=== PATIENT | male | born 1990 | race American Indian/Alaskan Native ===

== ENCOUNTER 2016-09-26 17:46 | Emergency (ER) | payer SELFPAY ==
[2016-09-26] MEDS ORDERED: Sodium Chloride 0.9% 10 ML Syringe FLUSH PRN (17:59)
[2016-09-26] MEDS ORDERED: LORazepam 2 MG/ML Syringe IVPUSH ONE (17:59)
[2016-09-26] MEDS ORDERED: Sodium Chloride 0.9% 1,000 ML IV ONE (17:59)
[2016-09-26] MEDS ORDERED: Diphtheria,Pertussis(Acell),Tetanus Vaccine 0.5 ML SDV IM ONE (18:00)
[2016-09-26] MEDS ORDERED: diphenhydrAMINE 50 MG/ML SDV ONE (18:07)
[2016-09-26] MEDS ORDERED: Ondansetron 4 MG/2 ML SDV IV ONE (18:23)
[2016-09-26 18:39] LABS: CHLORIDE,CL 104 mmol/L (101-111); SODIUM,NA 142 mmol/L (135-145)
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
[2016-09-26 21:08] VITALS: BP 118/60
== END 2016-09-26 21:08 ==
LOC: DL.ED 17:46
DX: S06.0X0A Concussion without loss of consciousness, initial encounter (principal); Z87.891 Personal history of nicotine dependence; W22.8XXA Striking against or struck by other objects, initial encounter
CPT/HCPCS: 12002; 36415; 70450; 80053; 85025; 90471; 90715; 96365; 96366; 96375; 99284; 99285; G0480; J1200; J2060; J2405; J7030; J7050

== ENCOUNTER 2016-10-02 20:25 | Emergency (ER) | payer SELFPAY ==
--- NOTE | 2016-10-02 20:41 | EDM.PDOC ---
ED HPI GENERAL MEDICAL PROBLEM - General Chief Complaint: Upper Extremity Injury/Pain Stated Complaint: HURT WRIST [id number] Time Seen by Provider: 10/02/16 20:40 Source of Information: Reports: Patient History Limitations: Reports: No Limitations - History of Present Illness INITIAL COMMENTS - FREE TEXT/NARRATIVE: fell onto it Left Wrist Pain Score (Numeric/FACES): 4 - Related Data Allergies Allergy/AdvReac Type Severity Reaction Status Date / Time No Known Allergies Allergy Verified 10/02/16 20:30 Home Meds: Home Meds . [No Known Home Meds] 10/02/16 [History] Past Medical History - Past Health History Medical/Surgical History: Denies Medical/Surgical History Respiratory History: Reports: Asthma Musculoskeletal History: Reports: Fracture Psychiatric History: Reports: Addiction, Anxiety, Panic Attack - Infectious Disease History Infectious Disease History: Reports: Chicken Pox Social & Family History - Family History Family Medical History: Noncontributory - Tobacco Use Smoking Status *Q: Never Smoker Years of Tobacco use: 5 Packs/Tins Daily: 0.5 Month Tobacco Last Used: december Second Hand Smoke Exposure: Yes - Caffeine Use Caffeine Use: Reports: Coffee - Alcohol Use Days Per Week of Alcohol Use: 1 Number of Drinks Per Day: 10 Total Drinks Per Week: 10 - Recreational Drug Use Recreational Drug Use: No Drug Use in Last 12 Months: No - Living Situation & Occupation Living situation: Reports: with Significant Other Occupation: Employed Review of Systems - Review of Systems Review Of Systems: ROS reveals no pertinent complaints other than HPI. Trauma Exam - Physical Exam Exam: See Below Exam Limited By: No Limitations General Appearance: Reports: Alert, WD/WN, Mild Distress, Other (pain) Head: Reports: Atraumatic Ears: Reports: Hearing Grossly Normal Throat/Mouth: Reports: Normal Voice, No Airway Compromise Neck: Reports: Non-Tender, Full Range of Motion Respiratory Exam: Reports: No Respiratory Distress Cardiovascular: Reports: Regular Rate, Rhythm GI/Abdominal: Reports: Soft, Non-Tender Extremities: Pain with Movement, Other (left wrist, NV wnl, mild swelling) Neurologic: Reports: No Motor/Sensory Deficits, Alert, Normal Mood/Affect, Oriented x 3 Skin: Reports: Normal Color, Warm/Dry Course - Vital Signs Last Recorded V/S: Last Vital Signs Temp 36.3 C 10/02/16 20:37 Pulse 84 10/02/16 20:37 Resp 16 10/02/16 20:37 BP 149/103 H 10/02/16 20:37 Pulse Ox 95 10/02/16 20:37 - Orders/Labs/Meds Orders: Active Orders 24 hr Category Date Time Status Wrist Comp Min 3V Lt [CR] Urgent Exams 10/02/16 20:40 Taken - Re-Assessments/Exams Free Text/Narrative Re-Assessment/Exam: 10/02/16 21:09 negative x-ray discussed with Pt. Departure - Departure Time of Disposition: 21:10 Disposition: Home, Self-Care 01 Condition: good Clinical Impression: Left wrist sprain Qualifiers: Encounter type: initial encounter Qualified Code(s): S63.502A - Unspecified sprain of left wrist, initial encounter - Discharge Information Instructions: Wrist Pain, [id number] Forms: ED Department Discharge Additional Instructions: 1) wear brace for comfort next 48 hours 2) follow up at clinic or recheck as needed - My Orders Last 24 Hours: My Active Orders 10/02/16 20:40 Wrist Comp Min 3V Lt [CR] Urgent - Assessment/Plan Last 24 Hours: My Active Orders 10/02/16 20:40 Wrist Comp Min 3V Lt [CR] Urgent
[2016-10-02 20:43] VITALS: BP 149/103
[2016-10-02] MEDS ORDERED: Acetaminophen/HYDROcodone 325-10 MG Tab PO ONE (21:10)
== END 2016-10-02 21:21 | disposition home or self-care (01) ==
LOC: DL.ED 20:25
DX: S63.502A Unspecified sprain of left wrist, initial encounter (principal); J45.909 Unspecified asthma, uncomplicated; F41.9 Anxiety disorder, unspecified; W19.XXXA Unspecified fall, initial encounter
CPT/HCPCS: 73110; 99283; A9270; 99282

== ENCOUNTER 2017-02-18 03:40 | Emergency (ER) | payer OTHER ==
[2017-02-18 03:46] VITALS: BP 152/75
[2017-02-18] MEDS ORDERED: Lidocaine 1% 30 ML SDV INJECT ONE (03:50)
[2017-02-18] MEDS ORDERED: Bacitracin Oint 1 GM U/D Packet TOP ONE (03:50)
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
[2017-02-18 04:15] LABS: CHLORIDE,CL 105 mmol/L (101-111); SODIUM,NA 139 mmol/L (135-145)
[2017-02-18 04:17] LABS: ACETAMINOPHEN < 10
== END 2017-02-18 04:25 ==
LOC: DL.ED 03:40
DX: Z02.89 Encounter for other administrative examinations (principal); S01.111A Laceration without foreign body of right eyelid and periocular area, initial encounter; F10.129 Alcohol abuse with intoxication, unspecified; Z88.0 Allergy status to penicillin; Z88.1 Allergy status to other antibiotic agents; Z88.5 Allergy status to narcotic agent; X58.XXXA Exposure to other specified factors, initial encounter; Y90.8 Blood alcohol level of 240 mg/100 ml or more
CPT/HCPCS: 12011; 36415; 80053; 80305; 81001; 85025; 99285; G0480; 99283

== ENCOUNTER 2017-03-03 10:37 | Emergency (ER) | payer SELFPAY ==
[2017-03-03 10:56] VITALS: BP 159/98
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
[2017-03-03] MEDS ORDERED: Acetaminophen/HYDROcodone 325-10 MG Tab PO ONE (11:37)
== END 2017-03-03 12:14 | disposition home or self-care (01) ==
LOC: DL.ED 10:37
DX: S02.2XXA Fracture of nasal bones, initial encounter for closed fracture (principal); X94.0XXA Assault by shotgun, initial encounter
CPT/HCPCS: 70486; 99283; A9270

== ENCOUNTER 2017-04-25 18:21 | Emergency (ER) | payer SELFPAY ==
[2017-04-25 18:47] VITALS: BP 190/106
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
[2017-04-25] MEDS ORDERED: LORazepam 2 MG/ML Syringe IVPUSH ONE (18:55)
[2017-04-25 19:21] LABS: CHLORIDE,CL 102 mmol/L (101-111); SODIUM,NA 137 mmol/L (135-145)
--- NOTE | 2017-04-28 10:44 | EKG ---
04/25/2017 - CANDIS PAYAN - FINDINGS: I reviewed the EKG and agree with the machine's reading. [facility] /[id number]
== END 2017-04-25 21:38 | disposition home or self-care (01) ==
LOC: DL.ED 18:21
DX: F15.10 Other stimulant abuse, uncomplicated (principal); J45.909 Unspecified asthma, uncomplicated; Z79.899 Other long term (current) drug therapy
CPT/HCPCS: 36415; 71010; 80053; 80305; 81003; 83605; 84484; 85025; 85379; 87040; 93005; 93010; 96374; 99285; G0480; J2060; 99282

== ENCOUNTER 2017-05-31 21:31 | Emergency (ER) | payer SELFPAY ==
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
[2017-05-31] MEDS ORDERED: Acetaminophen 325 MG Tab PO ONE (21:48)
== END 2017-05-31 22:48 | disposition left against medical advice (07) ==
LOC: DL.ED 21:31
DX: S01.112A Laceration without foreign body of left eyelid and periocular area, initial encounter (principal); J45.909 Unspecified asthma, uncomplicated; Z87.891 Personal history of nicotine dependence; Y04.0XXA Assault by unarmed brawl or fight, initial encounter
CPT/HCPCS: 70450; 72125; 72128; 99285; A9270; 99283

== ENCOUNTER 2017-06-21 02:57 | Emergency (ER) | payer OTHER ==
[2017-06-21 03:01] VITALS: BP 154/103
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
[2017-06-21] MEDS ORDERED: Lidocaine 1% with EPINEPHrine 1:100,000 30 ML MDV INJECT ONE (03:34)
[2017-06-21] MEDS ORDERED: Acetaminophen/oxyCODONE 325-5 MG Tab PO ONE ×2 (04:25→04:37)
[2017-06-21] MEDS ORDERED: Cephalexin 500 MG Cap PO ONE (04:33)
[2017-06-21] MEDS ORDERED: Cephalexin 500 MG Cap ONE (04:35)
[2017-06-21] MEDS ORDERED: Acetaminophen/oxyCODONE 325-5 MG Tab ONE ×2 (04:35→04:38)
[2017-06-21] MEDS ORDERED: Acetaminophen 325 MG Tab PO ONE (04:36)
== END 2017-06-21 04:46 | disposition home or self-care (01) ==
LOC: DL.ED 02:57
DX: S01.512A Laceration without foreign body of oral cavity, initial encounter (principal); S19.9XXA Unspecified injury of neck, initial encounter; F17.210 Nicotine dependence, cigarettes, uncomplicated; Y04.0XXA Assault by unarmed brawl or fight, initial encounter
CPT/HCPCS: 12011; 70450; 70486; 72125; 99284; 99285; A9270

== ENCOUNTER 2017-07-16 04:55 | Emergency (ER) | payer OTHER ==
[2017-07-16 05:21] VITALS: BP 177/118
[2017-07-16] MEDS ORDERED: Ketorolac 30 MG/ML SDV IM ONE (05:22)
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
== END 2017-07-16 06:19 | disposition home or self-care (01) ==
LOC: DL.ED 04:55
DX: M54.6 Pain in thoracic spine (principal); F17.210 Nicotine dependence, cigarettes, uncomplicated; Y04.2XXA Assault by strike against or bumped into by another person, initial encounter
CPT/HCPCS: 72070; 72110; 72220; 80305; 81001; 96372; 99284; J1885

== ENCOUNTER 2019-11-05 16:42 | Emergency (ER) | payer OTHER ==
[2019-11-05 17:11] VITALS: BP 148/102; PULSE 70
--- NOTE | 2019-11-13 03:47 | EDM.PDOC ---
Scribed by Selina Renee 11/13/19 0336 for Alison Burns PA-C ED HPI GENERAL MEDICAL PROBLEM - General Chief Complaint: Lower Extremity Injury/Pain Stated Complaint: LEFT ANKLE, NUMB IN AREA, IN PAIN WALK, PER PT Time Seen by Provider: 11/05/19 17:15 Source of Information: Reports: Patient, RN, RN Notes Reviewed History Limitations: Reports: No Limitations - History of Present Illness INITIAL COMMENTS - FREE TEXT/NARRATIVE: ED ambulatory, reports weakness to left foot and pain in Achilles area from injury sustained while playing basketball 15 weeks ago. States did not followup because of covid. Has not re injured extremity. Tingling sensation/numbness around ankle, some swelling Left Ankle Pain Score (Numeric/FACES): 4 - Related Data Allergies Allergy/AdvReac Type Severity Reaction Status Date / Time No Known Allergies Allergy Verified 11/05/19 17:00 Home Meds: Home Meds Albuterol Sulfate [Ventolin Hfa] 2 puff IN ASDIRECTED PRN 03/03/17 [History] Albuterol Sulfate 2.5 mg IH Q6HR PRN 04/22/18 [History] Past Medical History - Past Health History Medical/Surgical History: Denies Medical/Surgical History HEENT History: Reports: None Cardiovascular History: Reports: None Respiratory History: Reports: Asthma Gastrointestinal History: Reports: GERD Genitourinary History: Reports: None Musculoskeletal History: Reports: Fracture Neurological History: Reports: None Psychiatric History: Reports: Addiction, Anxiety, Panic Attack Endocrine/Metabolic History: Reports: None Hematologic History: Reports: None Immunologic History: Reports: None Oncologic (Cancer) History: Reports: None Dermatologic History: Reports: None - Infectious Disease History Infectious Disease History: Reports: Chicken Pox - Past Surgical History GI Surgical History: Reports: Appendectomy Social & Family History - Family History Family Medical History: Noncontributory - Tobacco Use Smoking Status *Q: Current Every Day Smoker Years of Tobacco use: 10 Packs/Tins Daily: 0.1 - Caffeine Use Caffeine Use: Reports: Soda - Recreational Drug Use Recreational Drug Use: No - Living Situation & Occupation Living situation: Reports: with Significant Other Occupation: Employed Review of Systems - Review of Systems Review Of Systems: Comprehensive ROS is negative, except as noted in HPI. ED EXAM, GENERAL - Physical Exam Exam: See Below Exam Limited By: No Limitations General Appearance: Alert, No Apparent Distress Ears: Hearing Grossly Normal Respiratory/Chest: No Respiratory Distress, Lungs Clear Extremities: Limited Range of Motion (limited flexion left ankle, lax flex extension), Other (mild tenderness posterior ankle with mild bulging in achilles area. ) Neurological: Alert, Oriented Psychiatric: Normal Affect Skin Exam: Warm, Dry, Intact Course - Vital Signs Last Recorded V/S: Last Vital Signs Temp 98.2 F 11/05/19 17:09 Pulse 70 11/05/19 17:09 Resp 18 11/05/19 17:09 BP 148/102 H 11/05/19 17:09 Pulse Ox 98 11/05/19 17:09 - Re-Assessments/Exams Free Text/Narrative Re-Assessment/Exam: MRI recommended to determine extent of injury, Unavailable through ED. Informed study needed to be ordered through clinic. Injury 15 weeks old. Xray offered Patient states will just leave. AMA form signed. Departure - Departure Time of Disposition: 17:55 Disposition: Against Medical Advice 07 Condition: Undetermined Clinical Impression: Lower extremity injury Qualifiers: Encounter type: initial encounter Laterality: left Qualified Code(s): S89.92XA - Unspecified injury of left lower leg, initial encounter - Discharge Information Referrals: PCP,None [Primary Care Provider] - Forms: ED Department Discharge Sepsis Event Note (ED) - Evaluation Sepsis Screening Result: No Definite Risk I have read and agree with the documentation that has been completed regarding this visit. By signing this record, I attest that the documentation was completed in my physical presence and is an accurate record of the encounter.
== END 2019-11-05 17:57 | disposition left against medical advice (07) ==
LOC: DL.ED 16:42
DX: S89.92XA Unspecified injury of left lower leg, initial encounter (principal); F17.210 Nicotine dependence, cigarettes, uncomplicated; X58.XXXA Exposure to other specified factors, initial encounter; Y93.67 Activity, basketball
CPT/HCPCS: 99283

== ENCOUNTER 2020-03-08 06:58 | Emergency (ER) | payer OTHER ==
--- NOTE | 2020-03-08 07:32 | EDM.PDOCBH ---
ED HPI GENERAL MEDICAL PROBLEM - General Chief Complaint: Drug or Alcohol Abuse Stated Complaint: ambulance Time Seen by Provider: 03/08/20 07:20 Source of Information: Reports: Patient, EMS, EMS Notes Reviewed, RN, RN Notes Reviewed History Limitations: Reports: Intoxication - History of Present Illness INITIAL COMMENTS - FREE TEXT/NARRATIVE: Patient presents to the ED via EMS with complaints of bilateral lower extremity paraesthesia. Per EMS report, the patient presented to his friends home early this morning stating he could not feel his legs. When EMS arrived the patient was minimally responsive; He was given Narcan 1mL IVP x2 and aroused to loud voice. The patient is currently arousable to touch. He is disoriented to place and time. He states he "...just got off work at the [employer]." He denies alcohol or recreational drug use. He does attest to paraesthesia in his bilateral feet and lower legs. He denies pain to his trunk and all extremities. - Related Data Allergies Allergy/AdvReac Type Severity Reaction Status Date / Time No Known Allergies Allergy Verified 11/05/19 17:00 Home Meds: Home Meds Albuterol Sulfate [Ventolin Hfa] 2 puff IN ASDIRECTED PRN 03/03/17 [History] Albuterol Sulfate 2.5 mg IH Q6HR PRN 04/22/18 [History] Past Medical History - Past Health History Medical/Surgical History: Denies Medical/Surgical History HEENT History: Reports: None Cardiovascular History: Reports: None Respiratory History: Reports: Asthma Gastrointestinal History: Reports: GERD Genitourinary History: Reports: None Musculoskeletal History: Reports: Fracture Neurological History: Reports: None Psychiatric History: Reports: Addiction, Anxiety, Panic Attack Endocrine/Metabolic History: Reports: None Hematologic History: Reports: None Immunologic History: Reports: None Oncologic (Cancer) History: Reports: None Dermatologic History: Reports: None - Infectious Disease History Infectious Disease History: Reports: None - Past Surgical History GI Surgical History: Reports: Appendectomy Social & Family History - Family History Family Medical History: Noncontributory - Caffeine Use Caffeine Use: Reports: Soda - Recreational Drug Use Recreational Drug Use: Yes Recreational Drug Use Frequency: Patient Refuses To Answer - Living Situation & Occupation Living situation: Reports: with Significant Other Occupation: Employed ED ROS GENERAL - Review of Systems Review Of Systems: Comprehensive ROS is negative, except as noted in HPI. ED EXAM, BEHAVIORAL HEALTH - Physical Exam Exam: See Below Exam Limited By: Intoxication General Appearance: No Apparent Distress, Lethargic Respiratory/Chest: No Respiratory Distress, Lungs Clear, Normal Breath Sounds, No Accessory Muscle Use, Chest Non-Tender Cardiovascular: Normal Peripheral Pulses, Regular Rate, Rhythm, No Edema, No Gallop, No JVD, No Murmur, No Rub, Tachycardia GI/Abdominal: Normal Bowel Sounds, Soft, Non-Tender, No Distention, No Mass Back Exam: Normal Inspection, Full Range of Motion Extremities: No Pedal Edema, Limited Range of Motion (To bilateral toes), Other (Paraesthesia to bilateral lower extremities, knee down). No: Leg Pain Neurological: Disoriented to Place, Disoriented to Time, Slow Response to Commands, No Response to Pain (To bilateral lower extremities), Abnormal Sensation, Abnormal Motor. No: Babinski Psychiatric: Normal Affect, Normal Mood, Disoriented Skin Exam: Warm, Dry, Intact, Normal color, No rash, Erythema (Surrounding wound to anterior left lower leg), Wound/incision (Scabbed abrasion to left anterior lower leg; 2cm x 3cm). No: Ecchymosis, Mottled, Pallor, Petechiae, Rash COURSE, BEHAVIORAL HEALTH COMP - Course Vital Signs: Last Vital Signs Temp 98.7 F 03/08/20 10:25 Pulse 76 03/08/20 10:25 Resp 16 03/08/20 10:25 BP 133/90 03/08/20 10:25 Pulse Ox 97 03/08/20 10:25 Orders, Labs, Meds: Laboratory Tests 03/08/20 03/08/20 03/08/20 Range/Units 07:22 07:22 07:22 WBC 8.5 (5.0-10.0) 10^3/uL RBC 5.29 (4.6-6.2) 10^6/uL Hgb 16.2 (14.0-18.0) g/dL Hct 47.0 (40.0-54.0) % MCV 88.8 (80-100) fL MCH 30.6 (27.0-34.0) pg MCHC 34.5 (33.0-35.0) g/dL Plt Count 243 (150-450) 10^3/uL Neut % (Auto) 73.0 (42.2-75.2) % Lymph % (Auto) 18.9 L (20.5-50.1) % Hendricks % (Auto) 7.6 (2-8) % Eos % (Auto) 0.0 L (1.0-3.0) % Baso % (Auto) 0.5 (0.0-1.0) % Sodium 143 (136-145) mmol/L Potassium 3.0 L (3.5-5.1) mmol/L Chloride 103 (98-107) mmol/L Carbon Dioxide 26 (21-32) mmol/L Anion Gap 17.0 H (7-13) mEq/L BUN 7 (7-18) mg/dL Creatinine 0.94 (0.70-1.30) mg/dL Est Cr Clr Drug Dosing TNP Estimated GFR (MDRD) > 60 BUN/Creatinine Ratio 7.4 (No establ ref range) Glucose 109 H (74-99) mg/dL Calcium 8.1 L (8.5-10.1) mg/dL Phosphorus 2.6 (2.6-4.7) mg/dL Magnesium 2.0 (1.8-2.4) mg/dL Total Bilirubin 0.5 (0.2-1.0) mg/dL AST 148 H (15-37) U/L ALT 123 H (16-63) U/L Alkaline Phosphatase 138 H (46-116) U/L C-Reactive Protein 0.2 (0.0-0.9) mg/dL Total Protein 8.1 (6.4-8.2) g/dL Albumin 4.0 (3.4-5.0) g/dL Globulin 4.1 Albumin/Globulin Ratio 1.0 Urine Color (YELLOW) Urine Appearance (CLEAR) Urine pH (5.0-9.0) Ur Specific [place] (1.005-1.030) Urine Protein (NEGATIVE) Urine Glucose (UA) (NEGATIVE) Urine Ketones (NEGATIVE) Urine Occult Blood (NEGATIVE) Urine Nitrite (NEGATIVE) Urine Bilirubin (NEGATIVE) Urine Urobilinogen (0.2-1.0) mg/dL Ur Leukocyte Esterase (NEGATIVE) Urine RBC /HPF Urine WBC (0-5/HPF) /HPF Ur Epithelial Cells (NOT SEEN) /HPF Amorphous Sediment (NOT SEEN) /HPF Urine Bacteria (0-FEW/HPF) /HPF Urine Mucus (NOT SEEN) /LPF Urine Opiates Screen (NEGATIVE) Ur Oxycodone Screen (NEGATIVE) Urine Methadone Screen (NEGATIVE) Ur Barbiturates Screen (NEGATIVE) U Tricyclic Antidepress (NEGATIVE) Ur Phencyclidine Scrn (NEGATIVE) Ur Amphetamine Screen (NEGATIVE) U Methamphetamines Scrn (NEGATIVE) Urine MDMA Screen (NEGATIVE) U Benzodiazepines Scrn (NEGATIVE) Urine Cocaine Screen (NEGATIVE) U Marijuana (THC) Screen (NEGATIVE) Ethyl Alcohol 378 (0) mg/dL 03/08/20 03/08/20 03/08/20 Range/Units 07:43 07:43 13:37 WBC (5.0-10.0) 10^3/uL RBC (4.6-6.2) 10^6/uL Hgb (14.0-18.0) g/dL Hct (40.0-54.0) % MCV (80-100) fL MCH (27.0-34.0) pg MCHC (33.0-35.0) g/dL Plt Count (150-450) 10^3/uL Neut % (Auto) (42.2-75.2) % Lymph % (Auto) (20.5-50.1) % Hendricks % (Auto) (2-8) % Eos % (Auto) (1.0-3.0) % Baso % (Auto) (0.0-1.0) % Sodium (136-145) mmol/L Potassium (3.5-5.1) mmol/L Chloride (98-107) mmol/L Carbon Dioxide (21-32) mmol/L Anion Gap (7-13) mEq/L BUN (7-18) mg/dL Creatinine (0.70-1.30) mg/dL Est Cr Clr Drug Dosing Estimated GFR (MDRD) BUN/Creatinine Ratio (No establ ref range) Glucose (74-99) mg/dL Calcium (8.5-10.1) mg/dL Phosphorus (2.6-4.7) mg/dL Magnesium (1.8-2.4) mg/dL Total Bilirubin (0.2-1.0) mg/dL AST (15-37) U/L ALT (16-63) U/L Alkaline Phosphatase (46-116) U/L C-Reactive Protein (0.0-0.9) mg/dL Total Protein (6.4-8.2) g/dL Albumin (3.4-5.0) g/dL Globulin Albumin/Globulin Ratio Urine Color Yellow (YELLOW) Urine Appearance Slightly cloudy (CLEAR) Urine pH 6.0 (5.0-9.0) Ur Specific [place] >= 1.030 (1.005-1.030) Urine Protein 100 H (NEGATIVE) Urine Glucose (UA) Negative (NEGATIVE) Urine Ketones Trace H (NEGATIVE) Urine Occult Blood Moderate H (NEGATIVE) Urine Nitrite Negative (NEGATIVE) Urine Bilirubin Negative (NEGATIVE) Urine Urobilinogen 0.2 (0.2-1.0) mg/dL Ur Leukocyte Esterase Negative (NEGATIVE) Urine RBC 40-50 H /HPF Urine WBC 0-5 (0-5/HPF) /HPF Ur Epithelial Cells Rare (NOT SEEN) /HPF Amorphous Sediment Few (NOT SEEN) /HPF Urine Bacteria Occasional (0-FEW/HPF) /HPF Urine Mucus Occasional (NOT SEEN) /LPF Urine Opiates Screen Negative (NEGATIVE) Ur Oxycodone Screen Negative (NEGATIVE) Urine Methadone Screen Negative (NEGATIVE) Ur Barbiturates Screen Negative (NEGATIVE) U Tricyclic Antidepress Negative (NEGATIVE) Ur Phencyclidine Scrn Negative (NEGATIVE) Ur Amphetamine Screen Negative (NEGATIVE) U Methamphetamines Scrn Negative (NEGATIVE) Urine MDMA Screen Negative (NEGATIVE) U Benzodiazepines Scrn Negative (NEGATIVE) Urine Cocaine Screen Negative (NEGATIVE) U Marijuana (THC) Screen Positive H (NEGATIVE) Ethyl Alcohol 197 (0) mg/dL Medications Discontinued Medications Generic Name Dose Route Start Last Admin Trade Name Myles PRN Reason Stop Dose Admin Multivitamins/Minerals 10 ml/ 1,011.2 mls @ 999 mls/hr 03/08/20 08:00 03/08/20 08:32 Thiamine HCl 100 mg/ Folic IV 03/08/20 09:00 999 mls/hr Acid 1 mg/ Lactated Ringer's .BOLUS ONE Administration Sodium Chloride 1,000 mls @ 999 mls/hr 03/08/20 09:37 03/08/20 11:21 Normal Saline IV 03/08/20 10:37 Infused .BOLUS ONE Infusion Re-Assessment/Re-Exam: [facility] Final Radiology Report Call: [phone] assistance Online chat: [email or web address] Name: CANDIS DAVENPORT Age: 29Years M Date: 03/08/2020 SSN: -- : 1990 Study: CT THORACIC SPINE WO CONT Requesting Physician: Inna Petty Images: [phone] Addl Studies: Provided Clinical History: Paraesthesia to bilateral lower limbs; Injury? Contrast: Without Contrast Medium: Contrast Amount: Contrast Method: CONFIDENTIALITY STATEMENT This report is intended only for use by the referring physician, and only in accordance with law. If you received this in error, call [phone]. Page 1 of 1 PROCEDURE INFORMATION: Exam: CT Thoracic Spine Without Contrast Exam date and time: 03/08/2020 8:13 AM Age: 29 years old Clinical indication: Other: Paraesthesia of bilateral lower extremities; Additional info: Paraesthesia to bilateral lower limbs; Injury? TECHNIQUE: Imaging protocol: Computed tomography images of the thoracic spine without contrast. Radiation optimization: All CT scans at this facility use at least one of these dose optimization techniques: automated exposure control; mA and/or kV adjustment per patient size (includes targeted exams where dose is matched to clinical indication); or iterative reconstruction. COMPARISON: CR Thoracic Spine 2V 07/16/2017 5:42 AM FINDINGS: Vertebrae: No acute fracture. Normal alignment. Discs/Spinal canal/Neural foramina: No significant disc protrusion. No severe spinal canal stenosis. No significant neural foraminal narrowing. Soft tissues: Unremarkable. IMPRESSION: Unremarkable CT Spine. Thank you for allowing us to participate in the care of your patient. Dictated and Authenticated by: Ghanshyam Murphy MD 03/08/2020 8:53 AM Central Time ([place] & [place]) [facility] Final Radiology Report Call: [phone] assistance Online chat: [email or web address] Name: CANDIS DAVENPORT Age: 29Years M Date: 03/08/2020 SSN: -- : 1990 Study: CT LUMBAR SPINE WO CONT Requesting Physician: Inna Petty Images: [phone] Addl Studies: Provided Clinical History: Paraesthesia of bilateral lower extremities Contrast: Without Contrast Medium: Contrast Amount: Contrast Method: CONFIDENTIALITY STATEMENT This report is intended only for use by the referring physician, and only in accordance with law. If you received this in error, call [phone]. Page 1 of 1 PROCEDURE INFORMATION: Exam: CT Lumbar Spine Without Contrast Exam date and time: 03/08/2020 8:13 AM Age: 29 years old Clinical indication: Other: Paraesthesia of bilateral lower extremities TECHNIQUE: Imaging protocol: Computed tomography images of the lumbar spine without contrast. Radiation optimization: All CT scans at this facility use at least one of these dose optimization techniques: automated exposure control; mA and/or kV adjustment per patient size (includes targeted exams where dose is matched to clinical indication); or iterative reconstruction. COMPARISON: CR Lumbar Spine Min 4V 07/16/2017 5:38 AM FINDINGS: Vertebrae: No acute fracture. Normal alignment. Discs/Spinal canal/Neural foramina: The disc spaces are preserved in height. No evidence of spinal canal stenosis. No disc protrusion or extrusion. Soft tissues: Unremarkable. IMPRESSION: No acute findings. Thank you for allowing us to participate in the care of your patient. Dictated and Authenticated by: Ghanshyam Murphy MD 03/08/2020 8:58 AM Central Time ([place] & [place]) [facility] Final Radiology Report Call: [phone] assistance Online chat: [email or web address] Name: CANDIS DAVENPORT Age: 29Years M Date: 03/08/2020 SSN: -- : 1990 Study: CT CERVICAL SPINE WO CONT Requesting Physician: Inna Petty Images: [phone] Addl Studies: Provided Clinical History: Paraesthesia to bilateral lower limbs; Injury? Contrast: Without Contrast Medium: Contrast Amount: Contrast Method: Page 1 of 2 PROCEDURE INFORMATION: Exam: CT Cervical Spine Without Contrast Exam date and time: 03/08/2020 8:13 AM Age: 29 years old Clinical indication: Other: Paraesthesia to bilateral lower limbs; Injury? TECHNIQUE: Imaging protocol: Computed tomography images of the cervical spine without contrast. Radiation optimization: All CT scans at this facility use at least one of these dose optimization techniques: automated exposure control; mA and/or kV adjustment per patient size (includes targeted exams where dose is matched to clinical indication); or iterative reconstruction. COMPARISON: CT Cervical Spine wo Cont 06/21/2017 3:26 AM FINDINGS: Bones/joints: No acute fracture. Discs/Spinal canal/Neural foramina: The occipital condyles articulate normally with the first cervical vertebra bilaterally. The odontoid is intact. The lateral masses of C1 are in normal position with respect to C2. Facet joints demonstrate no obvious dislocation. Spinous processes are without acute abnormality. No degenerative changes at the atlantoaxial articulation. Soft tissues: Unremarkable. Sinuses: Mild mucosal disease within the ethmoid air cells. Mild mucosal disease within the left maxillary sinus Lungs: Lung apices are normal. IMPRESSION: No acute findings. CANDIS DAVENPORT | Final Radiology Report CONFIDENTIALITY STATEMENT This report is intended only for use by the referring physician, and only in accordance with law. If you received this in error, call [phone]. Page 2 of 2 Thank you for allowing us to participate in the care of your patient. Dictated and Authenticated by: Ghanshyam Murphy MD 03/08/2020 8:56 AM Central Time ([place] & [place]) Re-Assessment/Re-Exam Time: 08:05 (Patient now withdrawing to pain in bilateral lower extremities; He states he can feel. Deep Tendon Reflexes absent. BAL 378) Medical Clearance: 03/08/20 13:34 Patient doing well in extended stay ED. He reports he does have a ride home. Recheck of blood ETOH . Will discharge patient home. Departure - Departure Time of Disposition: 14:09 Disposition: Home, Self-Care 01 Condition: Good Clinical Impression: Alcohol abuse - Discharge Information *PRESCRIPTION DRUG MONITORING PROGRAM REVIEWED*: Not Applicable *COPY OF PRESCRIPTION DRUG MONITORING REPORT IN PATIENT PACO: Not Applicable Instructions: Alcohol Abuse and Dependence Information, Adult Additional Instructions: Refrain for utilizing alcohol to excess or illicit drug use. Sepsis Event Note (ED) - Evaluation Sepsis Screening Result: No Definite Risk - Focused Exam Vital Signs: Vital Signs Temp Pulse Resp BP Pulse Ox 03/08/20 10:25 98.7 F 76 16 133/90 97 03/08/20 07:16 98.0 F 96 16 174/116 H 97
[2020-03-08 07:52] LABS: CHLORIDE,CL 103 mmol/L (98-107); SODIUM,NA 143 mmol/L (136-145)
[2020-03-08] MEDS ORDERED: MVI, Adult with Vitamin K 10 ML, Thiamine 100 MG, Folic Acid 1 MG in Lactated Ringers 1... IV ONE ×4 (08:00)
--- NOTE | 2020-03-08 08:53 | CT ---
PROCEDURE INFORMATION: Exam: CT Thoracic Spine Without Contrast Exam date and time: 03/08/2020 8:13 AM Age: 29 years old Clinical indication: Other: Paraesthesia of bilateral lower extremities; Additional info: Paraesthesia to bilateral lower limbs; Injury? TECHNIQUE: Imaging protocol: Computed tomography images of the thoracic spine without contrast. Radiation optimization: All CT scans at this facility use at least one of these dose optimization techniques: automated exposure control; mA and/or kV adjustment per patient size (includes targeted exams where dose is matched to clinical indication); or iterative reconstruction. COMPARISON: CR Thoracic Spine 2V 07/16/2017 5:42 AM FINDINGS: Vertebrae: No acute fracture. Normal alignment. Discs/Spinal canal/Neural foramina: No significant disc protrusion. No severe spinal canal stenosis. No significant neural foraminal narrowing. Soft tissues: Unremarkable. IMPRESSION: Unremarkable CT Spine.
--- NOTE | 2020-03-08 08:56 | CT ---
PROCEDURE INFORMATION: Exam: CT Cervical Spine Without Contrast Exam date and time: 03/08/2020 8:13 AM Age: 29 years old Clinical indication: Other: Paraesthesia to bilateral lower limbs; Injury? TECHNIQUE: Imaging protocol: Computed tomography images of the cervical spine without contrast. Radiation optimization: All CT scans at this facility use at least one of these dose optimization techniques: automated exposure control; mA and/or kV adjustment per patient size (includes targeted exams where dose is matched to clinical indication); or iterative reconstruction. COMPARISON: CT Cervical Spine wo Cont 06/21/2017 3:26 AM FINDINGS: Bones/joints: No acute fracture. Discs/Spinal canal/Neural foramina: The occipital condyles articulate normally with the first cervical vertebra bilaterally. The odontoid is intact. The lateral masses of C1 are in normal position with respect to C2. Facet joints demonstrate no obvious dislocation. Spinous processes are without acute abnormality. No degenerative changes at the atlantoaxial articulation. Soft tissues: Unremarkable. Sinuses: Mild mucosal disease within the ethmoid air cells. Mild mucosal disease within the left maxillary sinus Lungs: Lung apices are normal. IMPRESSION: No acute findings.
--- NOTE | 2020-03-08 08:58 | CT ---
PROCEDURE INFORMATION: Exam: CT Lumbar Spine Without Contrast Exam date and time: 03/08/2020 8:13 AM Age: 29 years old Clinical indication: Other: Paraesthesia of bilateral lower extremities TECHNIQUE: Imaging protocol: Computed tomography images of the lumbar spine without contrast. Radiation optimization: All CT scans at this facility use at least one of these dose optimization techniques: automated exposure control; mA and/or kV adjustment per patient size (includes targeted exams where dose is matched to clinical indication); or iterative reconstruction. COMPARISON: CR Lumbar Spine Min 4V 07/16/2017 5:38 AM FINDINGS: Vertebrae: No acute fracture. Normal alignment. Discs/Spinal canal/Neural foramina: The disc spaces are preserved in height. No evidence of spinal canal stenosis. No disc protrusion or extrusion. Soft tissues: Unremarkable. IMPRESSION: No acute findings.
[2020-03-08] MEDS ORDERED: Sodium Chloride 0.9% 1,000 ML IV ONE (09:37)
[2020-03-08 10:47] VITALS: BP 133/90; PULSE 76
== END 2020-03-08 14:40 | disposition home or self-care (01) ==
LOC: DL.ED 06:58
DX: F10.10 Alcohol abuse, uncomplicated (principal); J45.909 Unspecified asthma, uncomplicated; R20.2 Paresthesia of skin; Y90.8 Blood alcohol level of 240 mg/100 ml or more
CPT/HCPCS: 36415; 72125; 72128; 72131; 80053; 80305-QW; 80307; 81001; 83735; 84100; 85025; 86140; 96365; 99285-25; J3411; J3490; J7030; J7120